=== PATIENT | female | born 1930 | race African-American/Black ===

== ENCOUNTER 2018-06-01 11:29 | Inpatient (IN) | payer MEDICARE, OTHER ==
[~2018-06-01] VITALS: Ht 172.7 cm; Wt 73.0 kg
[~2018-06-01 11:29] MED LIST: CARV3 PO; DOCU100C33 PO; FURO40TA5 PO; LISI2.5T2 PO; QUET25TA PO; SITA25 PO
[2018-06-01] MEDS ORDERED: ASPI-556 PO (11:36)
[2018-06-01] MEDS ORDERED: MORPHINE SULFATE 2 MG/ML SYRINGE IVP ONE (12:00)
[2018-06-01 12:16] LABS: BASOPHILS % (AUTO) 0.6 % (0.0-2.0); EOSINOPHILS % (AUTO) 0 % (1.0-6.0); HEMATOCRIT 27.4 % (36-46); HEMOGLOBIN 9.4 g/dL (12.0-16.0); LYMPHOCYTES # (AUTO) 0.7 K/uL (1.0-4.8); LYMPHOCYTES % (AUTO) 6.7 % (22.0-44.0); MEAN CORPUSCULAR HEMOGLOBIN 33.3 pg (26.0-34.0); MEAN CORPUSCULAR HGB CONC 34.4 G/dL (31.0-37.0); MEAN CORPUSCULAR VOLUME 97 fL (80-100); MONOCYTES # (AUTO) 0.5 K/uL (0.1-1.0); MONOCYTES % (AUTO) 4.9 % (2.0-9.0); NEUTROPHILS # (AUTO) 9.4 K/uL (1.8-7.7); PLATELET COUNT (AUTO) 159 K/uL (150-450); RED BLOOD CELL COUNT(AUTO) 2.83 MIL/uL (4.00-5.20); RED CELL DISTRIBUTION WIDTH 12.7 % (11.5-14.5)
[2018-06-01 12:17] LABS: NEUTROPHILS % (AUTO) 87.8 % (40.0-70.0)
[2018-06-01 12:29] LABS: ANION GAP 9 mmol/L (8-16); CALCIUM, TOTAL 9.1 mg/dL (8.8-10.5); CARBON DIOXIDE 28 mmol/L (22-29); CHLORIDE 105 mmol/L (98-107); CREATININE 1.27 mg/dL (0.60-1.30); GLOMERULAR FILTR. RATE CALC 48 mL/min (>60); GLUCOSE,RANDOM 248 mg/dL (70-110); POTASSIUM 4.1 mmol/L (3.5-5.1); SODIUM SERUM 142 mmol/L (136-145); UREA NITROGEN, BLOOD 27 mg/dL (7-18)
[2018-06-01] MEDS ORDERED: ACETAMINOPHEN 325 MG TABLET PO PRN (13:30)
[2018-06-01] MEDS ORDERED: OxyCODONE HCL/ACETAMINOPHEN 5-325 MG TABLET PO PRN (13:30)
[2018-06-01] MEDS ORDERED: MORPHINE SULFATE 2 MG/ML SYRINGE IVP PRN (13:30)
[2018-06-01] MEDS ORDERED: ONDANSETRON HCL 4 MG/2 ML VIAL IVP PRN (13:30)
[2018-06-01 14:59] LABS: CREATINE KINASE, TOTAL 115 U/L (26-192)
[2018-06-01 15:59] VITALS: BP 108/53
[2018-06-01] MEDS ORDERED: MAGNESIUM HYDROXIDE SUSPENSION 30 ML UDCUP PO PRN (16:45)
[2018-06-01] MEDS ORDERED: BISACODYL 10 MG RECTAL RECTAL SUPPOSITORY PR PRN (16:45)
[2018-06-01] MEDS ORDERED: HYDROCODONE/ACETAMINOPHEN 5-325 MG TABLET PO PRN (16:45)
[2018-06-01 17:53] LABS: PROTHROMBIN TIME 10.9 SEC (9.4-11.6)
[2018-06-01 17:57] LABS: ALBUMIN 3.6 g/dL (3.4-5.0); BILIRUBIN,DIRECT 0.1 mg/dL (0.00-0.20); BILIRUBIN,TOTAL 0.7 mg/dL (0.1-1.0); CALCIUM, TOTAL 9.1 mg/dL (8.8-10.5); CREATININE 1.12 mg/dL (0.60-1.30); TOTAL PROTEIN, SERUM 6.9 g/dL (6.4-8.2)
[2018-06-01] MEDS ORDERED: DEXTROSE 50%-WATER 25 GM/50 ML SYRINGE IVP PRN (19:00)
[2018-06-01 20:02] LABS: GLUCOMETER DEV NAME(LOC) 6N 1E; GLUCOSE,POINT OF CARE 206 MG/DL (70-110)
[2018-06-01 20:18] VITALS: BP 142/64
[2018-06-01] MEDS: CARVEDILOL 3.125 MG TABLET PO SCH (20:43)
[2018-06-01] MEDS: QUEtiapine FUMARATE 25 MG TABLET PO SCH (20:43)
[2018-06-01] MEDS: DOCUSATE SODIUM 100 MG CAPSULE PO SCH (20:43)
[2018-06-01] MEDS: FUROSEMIDE 40 MG TABLET PO SCH (20:43)
[2018-06-01 21:03] LABS: GLUCOMETER DEV NAME(LOC) 6N 1E; GLUCOSE,POINT OF CARE 202 MG/DL (70-110)
[2018-06-02 00:24] VITALS: BP 127/66
[2018-06-02] MEDS: DEXTROSE 5%-0.45% SODIUM CHL 1,000 ML IV SCH ×2 (04:39→17:23)
[2018-06-02 04:45] VITALS: BP 110/51
[2018-06-02 04:53] LABS: GLUCOMETER DEV NAME(LOC) 6N 1E; GLUCOSE,POINT OF CARE 196 MG/DL (70-110)
[2018-06-02 08:00] VITALS: BP 138/88
[2018-06-02] MEDS: CARVEDILOL 3.125 MG TABLET PO SCH ×3 (08:41→21:16)
[2018-06-02] MEDS: SitaGLIPtin PHOSPHATE 25 MG TABLET PO SCH ×2 (08:41→09:44)
[2018-06-02] MEDS: FUROSEMIDE 40 MG TABLET PO SCH ×3 (08:41→21:16)
[2018-06-02] MEDS: ASPIRIN 81 MG EC TABLET PO SCH (08:41)
[2018-06-02] MEDS: DOCUSATE SODIUM 100 MG CAPSULE PO SCH ×3 (08:41→21:15)
[2018-06-02] MEDS ORDERED: [UNRECOGNIZED DRUG - OTHER] PO SCH (09:00)
[2018-06-02] MEDS: OxyCODONE HCL/ACETAMINOPHEN 5-325 MG TABLET PO PRN (09:33)
[2018-06-02] MEDS: PANTOPRAZOLE SODIUM 40 MG/VIAL IVP SCH (09:34)
[2018-06-02] MEDS: INSULIN LISPRO 100 UNITS/ML SQ PRN ×3 (11:30→21:19)
[2018-06-02 11:33] LABS: GLUCOMETER DEV NAME(LOC) 6N 2D; GLUCOSE,POINT OF CARE 212 MG/DL (70-110)
[2018-06-02 15:32] VITALS: BP 123/60
[2018-06-02 17:54] LABS: GLUCOMETER DEV NAME(LOC) 6N 1E; GLUCOSE,POINT OF CARE 206 MG/DL (70-110)
[2018-06-02 19:29] VITALS: BP 125/58
[2018-06-02] MEDS: QUEtiapine FUMARATE 25 MG TABLET PO SCH (21:16)
[2018-06-02 21:53] LABS: GLUCOMETER DEV NAME(LOC) 6N 2D; GLUCOSE,POINT OF CARE 162 MG/DL (70-110)
[2018-06-02 23:15] VITALS: BP 121/62
[2018-06-03 03:22] VITALS: BP 124/64
[2018-06-03] MEDS ORDERED: CeFAZolin 2 GM/DEXTROSE 50 ML IV ONE (06:00)
[2018-06-03 06:53] LABS: GLUCOMETER DEV NAME(LOC) 6N 1E; GLUCOSE,POINT OF CARE 196 MG/DL (70-110)
[2018-06-03 08:11] VITALS: BP 143/57
[2018-06-03] MEDS ORDERED: RINGERS SOLUTION,LACTATED 1,000 ML IV ONE ×2 (08:18→08:30)
[2018-06-03] MEDS ORDERED: BUPIVACAINE HCL/PF 0.5% 30 ML VIAL ONE (09:18)
[2018-06-03] MEDS ORDERED: HYDROGEN PEROXIDE 473 ML SOLUTION ONE (09:18)
[2018-06-03] MEDS ORDERED: MEPERIDINE HCL/PF 25 MG/0.5 ML AMP IVP PRN (11:00)
[2018-06-03] MEDS ORDERED: FentaNYL CITRATE-PF 100 MCG/2 ML VIAL IVP PRN (11:00)
[2018-06-03] MEDS ORDERED: MEPERIDINE HCL/PF 25 MG/0.5 ML AMP ONE (11:24)
[2018-06-03] MEDS ORDERED: HYDROmorphone 2 MG/ML SYRINGE ONE (11:29)
[2018-06-03] MEDS: HYDROmorphone 2 MG/ML SYRINGE IVP PRN ×2 (11:31→11:40)
[2018-06-03 11:39] LABS: HEMATOCRIT 25.3 % (36-46); HEMOGLOBIN 8.8 g/dL (12.0-16.0)
[2018-06-03] MEDS: FUROSEMIDE 40 MG TABLET PO SCH ×2 (12:50→20:24)
[2018-06-03] MEDS: CARVEDILOL 3.125 MG TABLET PO SCH ×2 (12:50→20:25)
[2018-06-03] MEDS: OxyCODONE HCL/ACETAMINOPHEN 5-325 MG TABLET PO PRN (12:50)
[2018-06-03] MEDS: DOCUSATE SODIUM 100 MG CAPSULE PO SCH ×2 (12:50→20:25)
[2018-06-03] MEDS: ASPIRIN 81 MG EC TABLET PO SCH (12:50)
[2018-06-03] MEDS: SitaGLIPtin PHOSPHATE 25 MG TABLET PO SCH (12:50)
[2018-06-03] MEDS: PANTOPRAZOLE SODIUM 40 MG/VIAL IVP SCH (12:51)
[2018-06-03 13:23] VITALS: BP 126/71
[2018-06-03 16:23] VITALS: BP 122/66
[2018-06-03] MEDS: CeFAZolin 1 GM/DEXTROSE 50 ML IV SCH (17:19)
[2018-06-03] MEDS: DEXTROSE 5%-0.45% SODIUM CHL 1,000 ML IV SCH (17:20)
[2018-06-03] MEDS: INSULIN LISPRO 100 UNITS/ML SQ PRN ×2 (17:52→20:28)
[2018-06-03 19:53] LABS: GLUCOMETER DEV NAME(LOC) 6N 2D; GLUCOSE,POINT OF CARE 263 MG/DL (70-110)
[2018-06-03 19:57] VITALS: BP 123/79
[2018-06-03] MEDS: QUEtiapine FUMARATE 25 MG TABLET PO SCH (20:24)
[2018-06-03] MEDS: OXYGEN THERAPY IH SCH (20:24)
[2018-06-03 23:00] VITALS: BP 130/60
[2018-06-04] VITALS (13 sets, daily range): BP systolic 104–147; BP diastolic 41–82
[2018-06-04] MEDS: CeFAZolin 1 GM/DEXTROSE 50 ML IV SCH (02:20)
[2018-06-04] MEDS ORDERED: FentaNYL CITRATE-PF 100 MCG/2 ML VIAL IVP ONE (05:26)
[2018-06-04] MEDS ORDERED: SUCCINYLCHOLINE CHLORIDE 20 MG/ML 10 ML VIAL IVP ONE (05:26)
[2018-06-04] MEDS ORDERED: PROPOFOL 1% 20 ML VIAL IVP ONE (05:26)
[2018-06-04] MEDS ORDERED: ETOMIDATE 2 MG/ML 10 ML VIAL IVP ONE (05:26)
[2018-06-04] MEDS ORDERED: METOCLOPRAMIDE HCL 5 MG/ML 2 ML VIAL IVP ONE (05:26)
[2018-06-04] MEDS ORDERED: LIDOCAINE HCL/PF 2% 5 ML SYRINGE IVP ONE (05:26)
[2018-06-04] MEDS ORDERED: DEXAMETHASONE SOD PHOS 4 MG/ML VIAL IVP ONE (05:26)
[2018-06-04] MEDS: INSULIN LISPRO 100 UNITS/ML SQ PRN ×4 (05:51→20:00)
[2018-06-04 06:43] LABS: GLUCOMETER DEV NAME(LOC) 6N 1E; GLUCOSE,POINT OF CARE 163 MG/DL (70-110)
[2018-06-04 06:43] LABS: GLUCOMETER DEV NAME(LOC) 6N 1E; GLUCOSE,POINT OF CARE 287 MG/DL (70-110)
[2018-06-04 06:51] LABS: BASOPHILS % (AUTO) 0.1 % (0.0-2.0); EOSINOPHILS % (AUTO) 0.1 % (1.0-6.0); HEMATOCRIT 21.5 % (36-46); HEMOGLOBIN 7.5 g/dL (12.0-16.0); LYMPHOCYTES % (AUTO) 13.4 % (22.0-44.0); MEAN CORPUSCULAR HEMOGLOBIN 33.6 pg (26.0-34.0); MEAN CORPUSCULAR HGB CONC 34.7 G/dL (31.0-37.0); MEAN CORPUSCULAR VOLUME 97 fL (80-100); MONOCYTES # (AUTO) 0.7 K/uL (0.1-1.0); NEUTROPHILS # (AUTO) 5.7 K/uL (1.8-7.7); NEUTROPHILS % (AUTO) 77.4 % (40.0-70.0); RED BLOOD CELL COUNT(AUTO) 2.22 MIL/uL (4.00-5.20); RED CELL DISTRIBUTION WIDTH 12.6 % (11.5-14.5)
[2018-06-04 07:37] LABS: PLATELET COUNT (AUTO) 129 K/uL (150-450)
[2018-06-04] MEDS: CARVEDILOL 3.125 MG TABLET PO SCH ×2 (08:54→19:45)
[2018-06-04] MEDS: DOCUSATE SODIUM 100 MG CAPSULE PO SCH ×2 (08:54→19:45)
[2018-06-04] MEDS: SitaGLIPtin PHOSPHATE 25 MG TABLET PO SCH (08:54)
[2018-06-04] MEDS: ENOXAPARIN SODIUM 30 MG/0.3 ML PF SYRINGE SQ SCH ×2 (08:54→21:37)
[2018-06-04] MEDS: FUROSEMIDE 40 MG TABLET PO SCH ×2 (08:54→19:45)
[2018-06-04] MEDS: ASPIRIN 81 MG EC TABLET PO SCH (08:54)
[2018-06-04] MEDS: PANTOPRAZOLE SODIUM 40 MG/VIAL IVP SCH (08:57)
[2018-06-04] MEDS: OxyCODONE HCL/ACETAMINOPHEN 5-325 MG TABLET PO PRN ×2 (08:57→19:45)
[2018-06-04 12:28] LABS: GLUCOMETER DEV NAME(LOC) 6N 2D; GLUCOSE,POINT OF CARE 189 MG/DL (70-110)
[2018-06-04] MEDS: OXYGEN THERAPY IH SCH (19:35)
[2018-06-04] MEDS: QUEtiapine FUMARATE 25 MG TABLET PO SCH (19:45)
[2018-06-05 00:16] VITALS: BP 105/54
[2018-06-05 04:24] VITALS: BP 129/55
[2018-06-05] MEDS: DEXTROSE 5%-0.45% SODIUM CHL 1,000 ML IV SCH ×2 (05:20→11:56)
[2018-06-05 07:50] VITALS: BP 161/78
[2018-06-05] MEDS: OXYGEN THERAPY IH SCH (08:00)
[2018-06-05 08:45] VITALS: BP 107/64
[2018-06-05] MEDS: FUROSEMIDE 40 MG TABLET PO SCH (09:35)
[2018-06-05] MEDS: CARVEDILOL 3.125 MG TABLET PO SCH (09:35)
[2018-06-05] MEDS: ASPIRIN 81 MG EC TABLET PO SCH (09:35)
[2018-06-05] MEDS: SitaGLIPtin PHOSPHATE 25 MG TABLET PO SCH (09:35)
[2018-06-05] MEDS: PANTOPRAZOLE SODIUM 40 MG/VIAL IVP SCH (09:36)
[2018-06-05] MEDS: ENOXAPARIN SODIUM 30 MG/0.3 ML PF SYRINGE SQ SCH (09:36)
[2018-06-05] MEDS: DOCUSATE SODIUM 100 MG CAPSULE PO SCH (09:57)
[2018-06-05 10:26] LABS: BASOPHILS % (AUTO) 0.8 % (0.0-2.0); EOSINOPHILS % (AUTO) 0.4 % (1.0-6.0); HEMATOCRIT 30.3 % (36-46); HEMOGLOBIN 10.5 g/dL (12.0-16.0); LYMPHOCYTES % (AUTO) 11.6 % (22.0-44.0); MEAN CORPUSCULAR HEMOGLOBIN 32.8 pg (26.0-34.0); MEAN CORPUSCULAR HGB CONC 34.8 G/dL (31.0-37.0); MEAN CORPUSCULAR VOLUME 94 fL (80-100); MONOCYTES # (AUTO) 0.7 K/uL (0.1-1.0); MONOCYTES % (AUTO) 7.7 % (2.0-9.0); NEUTROPHILS # (AUTO) 7.2 K/uL (1.8-7.7); NEUTROPHILS % (AUTO) 79.5 % (40.0-70.0); PLATELET COUNT (AUTO) 203 K/uL (150-450); RED BLOOD CELL COUNT(AUTO) 3.21 MIL/uL (4.00-5.20)
[2018-06-05 10:39] LABS: GLUCOMETER DEV NAME(LOC) 5N 1P; GLUCOSE,POINT OF CARE 109 MG/DL (70-110)
[2018-06-05 10:39] LABS: GLUCOMETER DEV NAME(LOC) 5N 1P; GLUCOSE,POINT OF CARE 188 MG/DL (70-110)
[2018-06-05 10:39] LABS: GLUCOMETER DEV NAME(LOC) 5N 1P; GLUCOSE,POINT OF CARE 144 MG/DL (70-110)
[2018-06-05 10:50] VITALS: BP 109/54
[2018-06-05] MEDS: INSULIN LISPRO 100 UNITS/ML SQ PRN (11:55)
[2018-06-05] MEDS: OxyCODONE HCL/ACETAMINOPHEN 5-325 MG TABLET PO PRN (12:35)
[2018-06-05] MEDS ORDERED: PANT40TA PO (14:40)
[2018-06-05 15:15] VITALS: BP 138/72
[2018-06-05 23:49] LABS: GLUCOMETER DEV NAME(LOC) 5N 1P; GLUCOSE,POINT OF CARE 272 MG/DL (70-110)
== END 2018-06-05 15:15 | DRG 481 ==
LOC: EMS 11:31 → 6N 13:45 → 5N 06-04 12:10
PROVIDERS: ADMIT Internal Medicine; ATTEND Internal Medicine
PROC: 0QH606Z Insertion of Intramedullary Internal Fixation Device into Right Upper Femur, Open Approach (ICD-10-PCS; principal; 2018-06-03 09:30)
PROC: 30233N1 Transfusion of Nonautologous Red Blood Cells into Peripheral Vein, Percutaneous Approach (ICD-10-PCS; 2018-06-04)
DX: S72.141A Displaced intertrochanteric fracture of right femur, initial encounter for closed fracture (principal); I42.9 Cardiomyopathy, unspecified; I50.22 Chronic systolic (congestive) heart failure; E11.65 Type 2 diabetes mellitus with hyperglycemia; F03.90 Unspecified dementia, unspecified severity, without behavioral disturbance, psychotic disturbance, mood disturbance, and anxiety; D64.9 Anemia, unspecified; E78.5 Hyperlipidemia, unspecified; I11.0 Hypertensive heart disease with heart failure; F20.9 Schizophrenia, unspecified; W06.XXXA Fall from bed, initial encounter; Z96.642 Presence of left artificial hip joint; Y93.89 Activity, other specified; Y92.89 Other specified places as the place of occurrence of the external cause; Y99.8 Other external cause status; Z95.810 Presence of automatic (implantable) cardiac defibrillator; Z79.899 Other long term (current) drug therapy; Z79.82 Long term (current) use of aspirin
CPT/HCPCS: 51702; 73502; 73552; 82248; 85014; 85018; 86850; 86900; 86901; 86920; 87081; 93005; 93306; 96374; 97162; 97166; 97167; 97530; 97535; 99285; C9113; J0330; J0690; J1100; J1170; J1650; J2270; J2704; J2765; J3010; J3490; J7120; P9016

== ENCOUNTER 2018-06-05 15:20 | Inpatient (IN) | payer MEDICARE, OTHER ==
[~2018-06-05] VITALS: Ht 165.1 cm; Wt 63.5 kg
[~2018-06-05 15:20] MED LIST changes: +ASPI-556 PO; +PANT40TA PO
[2018-06-05 15:30] VITALS: BP 136/60
[2018-06-05] MEDS ORDERED: DEXTROSE 50%-WATER 25 GM/50 ML SYRINGE IVP PRN (16:45)
[2018-06-05 18:34] LABS: GLUCOMETER DEV NAME(LOC) 2WR 1B; GLUCOSE,POINT OF CARE 167 MG/DL (70-110)
[2018-06-05] MEDS: INSULIN LISPRO 100 UNITS/ML SQ PRN ×2 (18:37→20:31)
[2018-06-05 20:21] VITALS: BP 147/71
[2018-06-05] MEDS: QUEtiapine FUMARATE 25 MG TABLET PO SCH (20:29)
[2018-06-05] MEDS: DOCUSATE SODIUM 100 MG CAPSULE PO SCH (20:29)
[2018-06-05] MEDS: SENNA 187 MG TABLET PO SCH (20:29)
[2018-06-05] MEDS: FUROSEMIDE 40 MG TABLET PO SCH (20:29)
[2018-06-05] MEDS: CARVEDILOL 3.125 MG TABLET PO SCH (20:29)
[2018-06-05] MEDS: ENOXAPARIN SODIUM 30 MG/0.3 ML PF SYRINGE SQ SCH (20:32)
[2018-06-05] MEDS ORDERED: QUEtiapine FUMARATE 25 MG TABLET PO SCH (21:00)
[2018-06-05 21:58] LABS: GLUCOMETER DEV NAME(LOC) 2WR 1B; GLUCOSE,POINT OF CARE 162 MG/DL (70-110)
[2018-06-06 03:02] VITALS: BP 138/63
[2018-06-06 04:45] LABS: APPEARANCE,URINE CLEAR (CLEAR); BILIRUBIN,URINE NEGATIVE (NEGATIVE); GLUCOSE, URINE (UA) NEGATIVE (NEGATIVE); KETONES,URINE NEGATIVE (NEGATIVE); LEUKOCYTE ESTERASE ,URINE NEGATIVE (NEGATIVE); NITRATE,URINE NEGATIVE (NEGATIVE); OCCULT BLOOD,URINE NEGATIVE (NEGATIVE); PROTEIN,URINE NEGATIVE (NEGATIVE)
[2018-06-06 05:04] LABS: BACTERIA,URINE None Seen /HPF (None Seen); RBC,URINE None Seen /HPF (0-2); WBC,URINE None Seen /HPF (0-5)
[2018-06-06 05:53] LABS: GLUCOMETER DEV NAME(LOC) 2WR 1B; GLUCOSE,POINT OF CARE 131 MG/DL (70-110)
[2018-06-06 06:43] LABS: EOSINOPHILS % (AUTO) 0.5 % (1.0-6.0); HEMATOCRIT 27.9 % (36-46); HEMOGLOBIN 9.8 g/dL (12.0-16.0); LYMPHOCYTES # (AUTO) 1.1 K/uL (1.0-4.8); LYMPHOCYTES % (AUTO) 17.3 % (22.0-44.0); MEAN CORPUSCULAR HGB CONC 35.1 G/dL (31.0-37.0); MEAN CORPUSCULAR VOLUME 94 fL (80-100); MONOCYTES # (AUTO) 0.6 K/uL (0.1-1.0); MONOCYTES % (AUTO) 8.5 % (2.0-9.0); NEUTROPHILS # (AUTO) 4.8 K/uL (1.8-7.7); NEUTROPHILS % (AUTO) 72.7 % (40.0-70.0); PLATELET COUNT (AUTO) 160 K/uL (150-450); RED BLOOD CELL COUNT(AUTO) 2.97 MIL/uL (4.00-5.20)
[2018-06-06 07:06] LABS: ALANINE AMINOTRANSFERASE 12 U/L (12-78); ALBUMIN 2.6 g/dL (3.4-5.0); ALKALINE PHOSPHATASE 77 U/L (46-116); ANION GAP 4 mmol/L (8-16); ASPARTATE AMINOTRANSFERASE 15 U/L (15-37); BILIRUBIN,TOTAL 0.9 mg/dL (0.1-1.0); CALCIUM, TOTAL 8.6 mg/dL (8.8-10.5); CARBON DIOXIDE 32 mmol/L (22-29); CHLORIDE 100 mmol/L (98-107); CREATININE 1.04 mg/dL (0.60-1.30); GLUCOSE,RANDOM 142 mg/dL (70-110); POTASSIUM 3.6 mmol/L (3.5-5.1); SODIUM SERUM 136 mmol/L (136-145); UREA NITROGEN, BLOOD 30 mg/dL (7-18)
[2018-06-06 07:07] LABS: GLOMERULAR FILTR. RATE CALC > 60 mL/min (>60)
[2018-06-06 07:20] VITALS: BP 125/72
[2018-06-06] MEDS: PANTOPRAZOLE SODIUM 40 MG DR TABLET PO SCH (09:44)
[2018-06-06] MEDS: ENOXAPARIN SODIUM 30 MG/0.3 ML PF SYRINGE SQ SCH ×2 (09:44→20:57)
[2018-06-06] MEDS: CARVEDILOL 3.125 MG TABLET PO SCH ×2 (09:44→20:56)
[2018-06-06] MEDS: FUROSEMIDE 40 MG TABLET PO SCH ×2 (09:44→20:57)
[2018-06-06] MEDS: SitaGLIPtin PHOSPHATE 25 MG TABLET PO SCH (09:44)
[2018-06-06] MEDS: DOCUSATE SODIUM 100 MG CAPSULE PO SCH ×2 (09:44→20:59)
[2018-06-06] MEDS: ASPIRIN 81 MG CHEWABLE TABLET PO SCH (09:44)
[2018-06-06] MEDS: MULTIVITAMINS WITH MINERALS, THERAPEUTIC TABLET PO SCH (10:26)
[2018-06-06 12:38] LABS: GLUCOMETER DEV NAME(LOC) 2WR 2E; GLUCOSE,POINT OF CARE 237 MG/DL (70-110)
[2018-06-06] MEDS: INSULIN LISPRO 100 UNITS/ML SQ PRN ×2 (13:17→21:00)
[2018-06-06 15:55] VITALS: BP 105/52
[2018-06-06] MEDS: OxyCODONE HCL/ACETAMINOPHEN 5-325 MG TABLET PO PRN (16:37)
[2018-06-06 17:49] LABS: GLUCOMETER DEV NAME(LOC) 2WR 1B; GLUCOSE,POINT OF CARE 143 MG/DL (70-110)
[2018-06-06 20:40] VITALS: BP 142/58
[2018-06-06] MEDS: SENNA 187 MG TABLET PO SCH (20:56)
[2018-06-06] MEDS: QUEtiapine FUMARATE 25 MG TABLET PO SCH (20:57)
[2018-06-06 21:43] LABS: GLUCOMETER DEV NAME(LOC) 2WR 2E; GLUCOSE,POINT OF CARE 153 MG/DL (70-110)
[2018-06-07 03:58] VITALS: BP 142/59
[2018-06-07 06:14] LABS: GLUCOMETER DEV NAME(LOC) 2WR 2E; GLUCOSE,POINT OF CARE 124 MG/DL (70-110)
[2018-06-07 07:22] VITALS: BP 143/55
[2018-06-07] MEDS: SitaGLIPtin PHOSPHATE 25 MG TABLET PO SCH (08:30)
[2018-06-07] MEDS: ENOXAPARIN SODIUM 30 MG/0.3 ML PF SYRINGE SQ SCH ×2 (08:30→21:08)
[2018-06-07] MEDS: ASPIRIN 81 MG CHEWABLE TABLET PO SCH (08:30)
[2018-06-07] MEDS: PANTOPRAZOLE SODIUM 40 MG DR TABLET PO SCH (08:30)
[2018-06-07] MEDS: FUROSEMIDE 40 MG TABLET PO SCH ×2 (08:30→21:08)
[2018-06-07] MEDS: CARVEDILOL 3.125 MG TABLET PO SCH ×2 (08:30→21:08)
[2018-06-07] MEDS: MULTIVITAMINS WITH MINERALS, THERAPEUTIC TABLET PO SCH (08:30)
[2018-06-07] MEDS: DOCUSATE SODIUM 100 MG CAPSULE PO SCH ×2 (08:35→21:08)
[2018-06-07] MEDS: ACETAMINOPHEN 325 MG TABLET PO PRN (09:30)
[2018-06-07 12:28] LABS: GLUCOMETER DEV NAME(LOC) 2WR 2E; GLUCOSE,POINT OF CARE 207 MG/DL (70-110)
[2018-06-07] MEDS: INSULIN LISPRO 100 UNITS/ML SQ PRN ×2 (12:51→21:15)
[2018-06-07] MEDS: OxyCODONE HCL/ACETAMINOPHEN 5-325 MG TABLET PO PRN ×2 (13:35→22:50)
[2018-06-07 15:15] VITALS: BP 124/61
[2018-06-07 17:44] LABS: GLUCOMETER DEV NAME(LOC) 2WR 2E; GLUCOSE,POINT OF CARE 110 MG/DL (70-110)
[2018-06-07] MEDS: SENNA 187 MG TABLET PO SCH (21:08)
[2018-06-07] MEDS: QUEtiapine FUMARATE 25 MG TABLET PO SCH (21:08)
[2018-06-07 22:19] LABS: GLUCOMETER DEV NAME(LOC) 2WR 1B; GLUCOSE,POINT OF CARE 153 MG/DL (70-110)
[2018-06-07 22:53] VITALS: BP 128/51
[2018-06-08 06:14] LABS: GLUCOMETER DEV NAME(LOC) 2WR 1B; GLUCOSE,POINT OF CARE 106 MG/DL (70-110)
[2018-06-08 07:34] VITALS: BP 142/70
[2018-06-08] MEDS: CARVEDILOL 3.125 MG TABLET PO SCH ×2 (08:08→20:28)
[2018-06-08] MEDS: MULTIVITAMINS WITH MINERALS, THERAPEUTIC TABLET PO SCH (08:08)
[2018-06-08] MEDS: ENOXAPARIN SODIUM 30 MG/0.3 ML PF SYRINGE SQ SCH ×2 (08:08→20:28)
[2018-06-08] MEDS: PANTOPRAZOLE SODIUM 40 MG DR TABLET PO SCH (08:08)
[2018-06-08] MEDS: DOCUSATE SODIUM 250 MG CAPSULE PO SCH ×2 (08:08→20:27)
[2018-06-08] MEDS: ASPIRIN 81 MG CHEWABLE TABLET PO SCH (08:08)
[2018-06-08] MEDS: FUROSEMIDE 40 MG TABLET PO SCH ×2 (08:08→20:27)
[2018-06-08] MEDS: SitaGLIPtin PHOSPHATE 25 MG TABLET PO SCH (08:08)
[2018-06-08] MEDS: OxyCODONE HCL/ACETAMINOPHEN 5-325 MG TABLET PO PRN ×3 (08:11→21:49)
[2018-06-08 12:49] LABS: GLUCOMETER DEV NAME(LOC) 2WR 1B; GLUCOSE,POINT OF CARE 213 MG/DL (70-110)
[2018-06-08] MEDS: INSULIN LISPRO 100 UNITS/ML SQ PRN ×2 (13:09→21:53)
[2018-06-08 15:30] VITALS: BP 117/55
[2018-06-08 17:53] LABS: GLUCOMETER DEV NAME(LOC) 2WR 1B; GLUCOSE,POINT OF CARE 126 MG/DL (70-110)
[2018-06-08] MEDS: DOCUSATE SODIUM 283 MG/5 ML MINI-ENEMA PR PRN (19:05)
[2018-06-08] MEDS: QUEtiapine FUMARATE 25 MG TABLET PO SCH (20:27)
[2018-06-08] MEDS: SENNA 187 MG TABLET PO SCH (20:28)
[2018-06-08 20:35] VITALS: BP 100/52
[2018-06-08 21:39] LABS: GLUCOMETER DEV NAME(LOC) 2WR 2E; GLUCOSE,POINT OF CARE 187 MG/DL (70-110)
[2018-06-09 00:28] VITALS: BP 116/54
[2018-06-09 06:04] LABS: GLUCOMETER DEV NAME(LOC) 2WR 2E; GLUCOSE,POINT OF CARE 106 MG/DL (70-110)
[2018-06-09 07:18] VITALS: BP 146/57
[2018-06-09] MEDS: SitaGLIPtin PHOSPHATE 25 MG TABLET PO SCH (07:59)
[2018-06-09] MEDS: MULTIVITAMINS WITH MINERALS, THERAPEUTIC TABLET PO SCH (07:59)
[2018-06-09] MEDS: PANTOPRAZOLE SODIUM 40 MG DR TABLET PO SCH (07:59)
[2018-06-09] MEDS: CARVEDILOL 3.125 MG TABLET PO SCH ×2 (08:00→20:28)
[2018-06-09] MEDS: ASPIRIN 81 MG CHEWABLE TABLET PO SCH (08:01)
[2018-06-09] MEDS: DOCUSATE SODIUM 250 MG CAPSULE PO SCH ×2 (08:01→20:28)
[2018-06-09] MEDS: FUROSEMIDE 40 MG TABLET PO SCH ×2 (08:01→20:29)
[2018-06-09] MEDS: ENOXAPARIN SODIUM 30 MG/0.3 ML PF SYRINGE SQ SCH ×2 (08:02→20:28)
[2018-06-09] MEDS: OxyCODONE HCL/ACETAMINOPHEN 5-325 MG TABLET PO PRN ×2 (09:01→20:28)
[2018-06-09 12:48] LABS: GLUCOMETER DEV NAME(LOC) 2WR 2E; GLUCOSE,POINT OF CARE 207 MG/DL (70-110)
[2018-06-09] MEDS: INSULIN LISPRO 100 UNITS/ML SQ PRN ×2 (13:21→20:47)
[2018-06-09] MEDS: ACETAMINOPHEN 325 MG TABLET PO PRN (14:49)
[2018-06-09 15:38] VITALS: BP 115/47
[2018-06-09 17:34] LABS: GLUCOMETER DEV NAME(LOC) 2WR 1B; GLUCOSE,POINT OF CARE 138 MG/DL (70-110)
[2018-06-09] MEDS: DOCUSATE SODIUM 283 MG/5 ML MINI-ENEMA PR PRN (19:25)
[2018-06-09 20:26] VITALS: BP 141/54
[2018-06-09] MEDS: QUEtiapine FUMARATE 25 MG TABLET PO SCH (20:28)
[2018-06-09] MEDS: SENNA 187 MG TABLET PO SCH (20:28)
[2018-06-09 21:09] LABS: GLUCOMETER DEV NAME(LOC) 2WR 1B; GLUCOSE,POINT OF CARE 194 MG/DL (70-110)
[2018-06-10 05:38] VITALS: BP 94/53
[2018-06-10 06:19] LABS: GLUCOMETER DEV NAME(LOC) 2WR 2E; GLUCOSE,POINT OF CARE 106 MG/DL (70-110)
[2018-06-10 06:47] LABS: % IRON SATURATION 27.1 % (22-44)
[2018-06-10 07:27] VITALS: BP 121/54
[2018-06-10] MEDS: FUROSEMIDE 40 MG TABLET PO SCH ×2 (08:00→20:53)
[2018-06-10] MEDS: MULTIVITAMINS WITH MINERALS, THERAPEUTIC TABLET PO SCH (08:00)
[2018-06-10] MEDS: DOCUSATE SODIUM 250 MG CAPSULE PO SCH ×2 (08:00→20:53)
[2018-06-10] MEDS: CARVEDILOL 3.125 MG TABLET PO SCH ×2 (08:00→20:53)
[2018-06-10] MEDS: ASPIRIN 81 MG CHEWABLE TABLET PO SCH (08:00)
[2018-06-10] MEDS: SitaGLIPtin PHOSPHATE 25 MG TABLET PO SCH (08:00)
[2018-06-10] MEDS: ENOXAPARIN SODIUM 30 MG/0.3 ML PF SYRINGE SQ SCH ×2 (08:01→20:54)
[2018-06-10] MEDS: PANTOPRAZOLE SODIUM 40 MG DR TABLET PO SCH (08:01)
[2018-06-10] MEDS: OxyCODONE HCL/ACETAMINOPHEN 5-325 MG TABLET PO PRN ×3 (08:38→20:53)
[2018-06-10 12:48] LABS: GLUCOMETER DEV NAME(LOC) 2WR 1B; GLUCOSE,POINT OF CARE 179 MG/DL (70-110)
[2018-06-10] MEDS: INSULIN LISPRO 100 UNITS/ML SQ PRN ×2 (13:03→21:09)
[2018-06-10 15:19] VITALS: BP 116/53
[2018-06-10 17:34] LABS: GLUCOMETER DEV NAME(LOC) 2WR 1B; GLUCOSE,POINT OF CARE 110 MG/DL (70-110)
[2018-06-10] MEDS ORDERED: DOCUSATE SODIUM 283 MG/5 ML MINI-ENEMA PR ONE (19:30)
[2018-06-10 20:46] VITALS: BP 138/64
[2018-06-10] MEDS: SENNA 187 MG TABLET PO SCH (20:53)
[2018-06-10] MEDS: QUEtiapine FUMARATE 25 MG TABLET PO SCH (20:53)
[2018-06-10] MEDS ORDERED: DOCUSATE SODIUM 283 MG/5 ML MINI-ENEMA PR SCH ×2 (21:00)
[2018-06-10 22:43] LABS: GLUCOMETER DEV NAME(LOC) 2WR 1B; GLUCOSE,POINT OF CARE 153 MG/DL (70-110)
[2018-06-10 23:25] VITALS: BP 112/69
[2018-06-11 06:04] LABS: GLUCOMETER DEV NAME(LOC) 2WR 1B; GLUCOSE,POINT OF CARE 97 MG/DL (70-110)
[2018-06-11 07:30] VITALS: BP 138/64
[2018-06-11] MEDS: SitaGLIPtin PHOSPHATE 25 MG TABLET PO SCH (08:14)
[2018-06-11] MEDS: ASPIRIN 81 MG CHEWABLE TABLET PO SCH (08:14)
[2018-06-11] MEDS: FUROSEMIDE 40 MG TABLET PO SCH ×2 (08:15→20:46)
[2018-06-11] MEDS: CARVEDILOL 3.125 MG TABLET PO SCH ×2 (08:15→20:45)
[2018-06-11] MEDS: MULTIVITAMINS WITH MINERALS, THERAPEUTIC TABLET PO SCH (08:15)
[2018-06-11] MEDS: ENOXAPARIN SODIUM 30 MG/0.3 ML PF SYRINGE SQ SCH ×2 (08:15→21:49)
[2018-06-11] MEDS: DOCUSATE SODIUM 250 MG CAPSULE PO SCH ×2 (08:15→20:45)
[2018-06-11] MEDS: OxyCODONE HCL/ACETAMINOPHEN 5-325 MG TABLET PO PRN ×2 (08:15→13:24)
[2018-06-11] MEDS: PANTOPRAZOLE SODIUM 40 MG DR TABLET PO SCH (08:15)
[2018-06-11 12:19] LABS: GLUCOMETER DEV NAME(LOC) 2WR 2E; GLUCOSE,POINT OF CARE 185 MG/DL (70-110)
[2018-06-11] MEDS: INSULIN LISPRO 100 UNITS/ML SQ PRN ×2 (13:05→20:48)
[2018-06-11 15:13] VITALS: BP 129/60
[2018-06-11 17:18] LABS: GLUCOMETER DEV NAME(LOC) 2WR 2E; GLUCOSE,POINT OF CARE 123 MG/DL (70-110)
[2018-06-11] MEDS: DOCUSATE SODIUM 283 MG/5 ML MINI-ENEMA PR SCH (18:16)
[2018-06-11] MEDS: QUEtiapine FUMARATE 25 MG TABLET PO SCH (20:45)
[2018-06-11] MEDS: SENNA 187 MG TABLET PO SCH (20:46)
[2018-06-11 20:56] VITALS: BP 160/98
[2018-06-11 21:14] LABS: GLUCOMETER DEV NAME(LOC) 2WR 1B; GLUCOSE,POINT OF CARE 166 MG/DL (70-110)
[2018-06-11 22:12] VITALS: BP 137/46
[2018-06-12 04:30] VITALS: BP 146/64
[2018-06-12 07:19] VITALS: BP 147/88
[2018-06-12 07:53] LABS: GLUCOMETER DEV NAME(LOC) 2WR 2E; GLUCOSE,POINT OF CARE 109 MG/DL (70-110)
[2018-06-12] MEDS: SitaGLIPtin PHOSPHATE 25 MG TABLET PO SCH (08:07)
[2018-06-12] MEDS: MULTIVITAMINS WITH MINERALS, THERAPEUTIC TABLET PO SCH (08:07)
[2018-06-12] MEDS: ENOXAPARIN SODIUM 30 MG/0.3 ML PF SYRINGE SQ SCH ×2 (08:07→20:13)
[2018-06-12] MEDS: OxyCODONE HCL/ACETAMINOPHEN 5-325 MG TABLET PO PRN ×3 (08:07→19:05)
[2018-06-12] MEDS: PANTOPRAZOLE SODIUM 40 MG DR TABLET PO SCH (08:08)
[2018-06-12] MEDS: FUROSEMIDE 40 MG TABLET PO SCH ×2 (08:08→20:13)
[2018-06-12] MEDS: DOCUSATE SODIUM 250 MG CAPSULE PO SCH ×2 (08:08→20:13)
[2018-06-12] MEDS: ASPIRIN 81 MG CHEWABLE TABLET PO SCH (08:08)
[2018-06-12] MEDS: CARVEDILOL 3.125 MG TABLET PO SCH ×2 (08:08→20:13)
[2018-06-12] MEDS: INSULIN LISPRO 100 UNITS/ML SQ PRN ×2 (12:42→20:37)
[2018-06-12 12:54] LABS: GLUCOMETER DEV NAME(LOC) 2WR 2E; GLUCOSE,POINT OF CARE 204 MG/DL (70-110)
[2018-06-12] MEDS ORDERED: BISACODYL 5 MG EC TABLET PO PRN (14:45)
[2018-06-12 14:58] VITALS: BP 119/59
[2018-06-12 15:48] VITALS: BP 119/59
[2018-06-12 17:03] LABS: GLUCOMETER DEV NAME(LOC) 2WR 1B; GLUCOSE,POINT OF CARE 109 MG/DL (70-110)
[2018-06-12] MEDS: DOCUSATE SODIUM 283 MG/5 ML MINI-ENEMA PR SCH (18:27)
[2018-06-12] MEDS: SENNA 187 MG TABLET PO SCH (20:13)
[2018-06-12] MEDS: QUEtiapine FUMARATE 25 MG TABLET PO SCH (20:13)
[2018-06-12 20:17] VITALS: BP 129/80
[2018-06-12 23:24] LABS: GLUCOMETER DEV NAME(LOC) 2WR 1B; GLUCOSE,POINT OF CARE 182 MG/DL (70-110)
[2018-06-13 05:47] VITALS: BP 159/67
[2018-06-13 06:19] LABS: GLUCOMETER DEV NAME(LOC) 2WR 2E; GLUCOSE,POINT OF CARE 112 MG/DL (70-110)
[2018-06-13 07:30] VITALS: BP 146/96
[2018-06-13] MEDS: MULTIVITAMINS WITH MINERALS, THERAPEUTIC TABLET PO SCH (08:07)
[2018-06-13] MEDS: ASPIRIN 81 MG CHEWABLE TABLET PO SCH (08:07)
[2018-06-13] MEDS: DOCUSATE SODIUM 250 MG CAPSULE PO SCH ×2 (08:07→20:33)
[2018-06-13] MEDS: SitaGLIPtin PHOSPHATE 25 MG TABLET PO SCH (08:07)
[2018-06-13] MEDS: PANTOPRAZOLE SODIUM 40 MG DR TABLET PO SCH (08:08)
[2018-06-13] MEDS: ENOXAPARIN SODIUM 30 MG/0.3 ML PF SYRINGE SQ SCH ×2 (08:08→20:33)
[2018-06-13] MEDS: FUROSEMIDE 40 MG TABLET PO SCH ×2 (08:08→20:34)
[2018-06-13] MEDS: CARVEDILOL 3.125 MG TABLET PO SCH ×2 (08:12→20:34)
[2018-06-13 10:51] VITALS: BP 140/72
[2018-06-13] MEDS: INSULIN LISPRO 100 UNITS/ML SQ PRN ×2 (12:27→21:28)
[2018-06-13 12:34] LABS: GLUCOMETER DEV NAME(LOC) 2WR 2E; GLUCOSE,POINT OF CARE 244 MG/DL (70-110)
[2018-06-13 15:20] VITALS: BP 138/66
[2018-06-13 17:54] LABS: GLUCOMETER DEV NAME(LOC) 2WR 1B; GLUCOSE,POINT OF CARE 105 MG/DL (70-110)
[2018-06-13] MEDS: DOCUSATE SODIUM 283 MG/5 ML MINI-ENEMA PR SCH (18:18)
[2018-06-13 20:30] VITALS: BP 126/67
[2018-06-13] MEDS: OxyCODONE HCL/ACETAMINOPHEN 5-325 MG TABLET PO PRN (20:33)
[2018-06-13] MEDS: QUEtiapine FUMARATE 25 MG TABLET PO SCH (20:34)
[2018-06-13] MEDS: SENNA 187 MG TABLET PO SCH (20:34)
[2018-06-13 21:28] LABS: GLUCOMETER DEV NAME(LOC) 2WR 2E; GLUCOSE,POINT OF CARE 206 MG/DL (70-110)
[2018-06-14 05:00] VITALS: BP 122/83
[2018-06-14 07:17] VITALS: BP 140/54
[2018-06-14 07:39] LABS: GLUCOMETER DEV NAME(LOC) 2WR 1B; GLUCOSE,POINT OF CARE 118 MG/DL (70-110)
[2018-06-14] MEDS: SitaGLIPtin PHOSPHATE 25 MG TABLET PO SCH (08:06)
[2018-06-14] MEDS: MULTIVITAMINS WITH MINERALS, THERAPEUTIC TABLET PO SCH (08:06)
[2018-06-14] MEDS: DOCUSATE SODIUM 250 MG CAPSULE PO SCH ×2 (08:06→20:29)
[2018-06-14] MEDS: PANTOPRAZOLE SODIUM 40 MG DR TABLET PO SCH (08:06)
[2018-06-14] MEDS: ASPIRIN 81 MG CHEWABLE TABLET PO SCH (08:07)
[2018-06-14] MEDS: FUROSEMIDE 40 MG TABLET PO SCH ×2 (08:07→20:30)
[2018-06-14] MEDS: CARVEDILOL 3.125 MG TABLET PO SCH ×2 (08:07→20:29)
[2018-06-14] MEDS: ENOXAPARIN SODIUM 30 MG/0.3 ML PF SYRINGE SQ SCH ×2 (08:13→20:29)
[2018-06-14 11:58] LABS: GLUCOMETER DEV NAME(LOC) 2WR 1B; GLUCOSE,POINT OF CARE 172 MG/DL (70-110)
[2018-06-14] MEDS: INSULIN LISPRO 100 UNITS/ML SQ PRN ×2 (12:57→22:02)
[2018-06-14 15:06] VITALS: BP 140/61
[2018-06-14 17:53] LABS: GLUCOMETER DEV NAME(LOC) 2WR 2E; GLUCOSE,POINT OF CARE 121 MG/DL (70-110)
[2018-06-14] MEDS: DOCUSATE SODIUM 283 MG/5 ML MINI-ENEMA PR SCH (18:08)
[2018-06-14 20:27] VITALS: BP 144/51
[2018-06-14] MEDS: SENNA 187 MG TABLET PO SCH (20:29)
[2018-06-14] MEDS: QUEtiapine FUMARATE 25 MG TABLET PO SCH (20:29)
[2018-06-14 21:03] LABS: GLUCOMETER DEV NAME(LOC) 2WR 2E; GLUCOSE,POINT OF CARE 183 MG/DL (70-110)
[2018-06-15] VITALS: BP 142/58
[2018-06-15 05:48] LABS: GLUCOMETER DEV NAME(LOC) 2WR 1B; GLUCOSE,POINT OF CARE 114 MG/DL (70-110)
[2018-06-15 07:22] VITALS: BP 130/54
[2018-06-15] MEDS: SitaGLIPtin PHOSPHATE 25 MG TABLET PO SCH (08:23)
[2018-06-15] MEDS: ASPIRIN 81 MG CHEWABLE TABLET PO SCH (08:23)
[2018-06-15] MEDS: FUROSEMIDE 40 MG TABLET PO SCH ×2 (08:23→20:30)
[2018-06-15] MEDS: PANTOPRAZOLE SODIUM 40 MG DR TABLET PO SCH (08:23)
[2018-06-15] MEDS: MULTIVITAMINS WITH MINERALS, THERAPEUTIC TABLET PO SCH (08:23)
[2018-06-15] MEDS: CARVEDILOL 3.125 MG TABLET PO SCH ×2 (08:23→20:30)
[2018-06-15] MEDS: DOCUSATE SODIUM 250 MG CAPSULE PO SCH ×2 (08:23→20:30)
[2018-06-15] MEDS: ENOXAPARIN SODIUM 30 MG/0.3 ML PF SYRINGE SQ SCH ×2 (08:24→20:31)
[2018-06-15 12:49] LABS: GLUCOMETER DEV NAME(LOC) 2WR 2E; GLUCOSE,POINT OF CARE 203 MG/DL (70-110)
[2018-06-15] MEDS: ACETAMINOPHEN 325 MG TABLET PO PRN (13:06)
[2018-06-15] MEDS: FERROUS SULFATE 325 MG EC TABLET PO SCH ×2 (13:06→17:43)
[2018-06-15] MEDS: INSULIN LISPRO 100 UNITS/ML SQ PRN ×3 (13:07→20:31)
[2018-06-15 16:06] VITALS: BP 129/84
[2018-06-15 17:03] LABS: GLUCOMETER DEV NAME(LOC) 2WR 2E; GLUCOSE,POINT OF CARE 149 MG/DL (70-110)
[2018-06-15] MEDS: DOCUSATE SODIUM 283 MG/5 ML MINI-ENEMA PR SCH (17:44)
[2018-06-15] MEDS: SENNA 187 MG TABLET PO SCH (20:30)
[2018-06-15] MEDS: QUEtiapine FUMARATE 25 MG TABLET PO SCH (20:30)
[2018-06-15] MEDS: MEMANTINE HCL 5 MG TABLET PO SCH (20:30)
[2018-06-15 20:37] VITALS: BP 125/64
[2018-06-15 21:19] LABS: GLUCOMETER DEV NAME(LOC) 2WR 1B; GLUCOSE,POINT OF CARE 169 MG/DL (70-110)
[2018-06-15] MEDS: OxyCODONE HCL/ACETAMINOPHEN 5-325 MG TABLET PO PRN (21:56)
[2018-06-16 06:19] VITALS: BP 140/76
[2018-06-16 07:30] VITALS: BP 130/65
[2018-06-16] MEDS: ENOXAPARIN SODIUM 30 MG/0.3 ML PF SYRINGE SQ SCH ×2 (08:31→20:27)
[2018-06-16] MEDS: FUROSEMIDE 40 MG TABLET PO SCH ×2 (08:32→20:27)
[2018-06-16] MEDS: MULTIVITAMINS WITH MINERALS, THERAPEUTIC TABLET PO SCH (08:32)
[2018-06-16] MEDS: CARVEDILOL 3.125 MG TABLET PO SCH ×2 (08:32→20:27)
[2018-06-16] MEDS: DOCUSATE SODIUM 250 MG CAPSULE PO SCH ×2 (08:32→20:27)
[2018-06-16] MEDS: ASPIRIN 81 MG CHEWABLE TABLET PO SCH (08:32)
[2018-06-16] MEDS: PANTOPRAZOLE SODIUM 40 MG DR TABLET PO SCH (08:32)
[2018-06-16] MEDS: FERROUS SULFATE 325 MG EC TABLET PO SCH ×3 (08:32→16:48)
[2018-06-16] MEDS: ACETAMINOPHEN 325 MG TABLET PO PRN (08:32)
[2018-06-16] MEDS: SitaGLIPtin PHOSPHATE 25 MG TABLET PO SCH (08:32)
[2018-06-16] MEDS: INSULIN LISPRO 100 UNITS/ML SQ PRN ×2 (13:04→17:41)
[2018-06-16] MEDS: OxyCODONE HCL/ACETAMINOPHEN 5-325 MG TABLET PO PRN (13:19)
[2018-06-16 14:55] LABS: GLUCOMETER DEV NAME(LOC) 2WR 2E; GLUCOSE,POINT OF CARE 160 MG/DL (70-110)
[2018-06-16 14:55] LABS: GLUCOMETER DEV NAME(LOC) 2WR 1B; GLUCOSE,POINT OF CARE 119 MG/DL (70-110)
[2018-06-16 15:28] VITALS: BP 130/56
[2018-06-16] MEDS: DOCUSATE SODIUM 283 MG/5 ML MINI-ENEMA PR SCH (18:35)
[2018-06-16 19:09] LABS: GLUCOMETER DEV NAME(LOC) 2WR 1B; GLUCOSE,POINT OF CARE 145 MG/DL (70-110)
[2018-06-16 20:24] VITALS: BP 123/69
[2018-06-16] MEDS: QUEtiapine FUMARATE 25 MG TABLET PO SCH (20:27)
[2018-06-16] MEDS: MEMANTINE HCL 5 MG TABLET PO SCH (20:27)
[2018-06-16] MEDS: SENNA 187 MG TABLET PO SCH (20:28)
[2018-06-16 21:14] LABS: GLUCOMETER DEV NAME(LOC) 2WR 1B; GLUCOSE,POINT OF CARE 99 MG/DL (70-110)
[2018-06-17 02:38] VITALS: BP 145/71
[2018-06-17 06:24] LABS: GLUCOMETER DEV NAME(LOC) 2WR 1B; GLUCOSE,POINT OF CARE 111 MG/DL (70-110)
[2018-06-17 07:21] VITALS: BP 130/67
[2018-06-17] MEDS: MULTIVITAMINS WITH MINERALS, THERAPEUTIC TABLET PO SCH (07:59)
[2018-06-17] MEDS: PANTOPRAZOLE SODIUM 40 MG DR TABLET PO SCH (07:59)
[2018-06-17] MEDS: OxyCODONE HCL/ACETAMINOPHEN 5-325 MG TABLET PO PRN (07:59)
[2018-06-17] MEDS: CARVEDILOL 3.125 MG TABLET PO SCH ×2 (08:00→20:46)
[2018-06-17] MEDS: FERROUS SULFATE 325 MG EC TABLET PO SCH ×3 (08:00→17:05)
[2018-06-17] MEDS: DOCUSATE SODIUM 250 MG CAPSULE PO SCH ×2 (08:00→20:46)
[2018-06-17] MEDS: ASPIRIN 81 MG CHEWABLE TABLET PO SCH (08:00)
[2018-06-17] MEDS: ENOXAPARIN SODIUM 30 MG/0.3 ML PF SYRINGE SQ SCH ×2 (08:00→20:46)
[2018-06-17] MEDS: FUROSEMIDE 40 MG TABLET PO SCH ×2 (08:01→20:47)
[2018-06-17] MEDS: SitaGLIPtin PHOSPHATE 25 MG TABLET PO SCH (08:02)
[2018-06-17 12:29] LABS: GLUCOMETER DEV NAME(LOC) 2WR 2E; GLUCOSE,POINT OF CARE 188 MG/DL (70-110)
[2018-06-17] MEDS: INSULIN LISPRO 100 UNITS/ML SQ PRN ×2 (12:57→20:49)
[2018-06-17 15:15] VITALS: BP 159/60
[2018-06-17 17:14] LABS: GLUCOMETER DEV NAME(LOC) 2WR 1B; GLUCOSE,POINT OF CARE 109 MG/DL (70-110)
[2018-06-17] MEDS: DOCUSATE SODIUM 283 MG/5 ML MINI-ENEMA PR SCH (18:20)
[2018-06-17] MEDS: MEMANTINE HCL 5 MG TABLET PO SCH (20:46)
[2018-06-17] MEDS: QUEtiapine FUMARATE 25 MG TABLET PO SCH (20:46)
[2018-06-17] MEDS: SENNA 187 MG TABLET PO SCH (20:46)
[2018-06-17 20:57] VITALS: BP 145/59
[2018-06-17 21:49] LABS: GLUCOMETER DEV NAME(LOC) 2WR 2E; GLUCOSE,POINT OF CARE 189 MG/DL (70-110)
[2018-06-18] VITALS: BP 138/61
[2018-06-18 05:44] LABS: GLUCOMETER DEV NAME(LOC) 2WR 1B; GLUCOSE,POINT OF CARE 103 MG/DL (70-110)
[2018-06-18 07:00] VITALS: BP 107/56
[2018-06-18] MEDS: DOCUSATE SODIUM 250 MG CAPSULE PO SCH ×3 (09:00→21:19)
[2018-06-18] MEDS: ENOXAPARIN SODIUM 30 MG/0.3 ML PF SYRINGE SQ SCH ×2 (10:13→21:19)
[2018-06-18] MEDS: FERROUS SULFATE 325 MG EC TABLET PO SCH ×3 (10:14→16:22)
[2018-06-18] MEDS: ACETAMINOPHEN 325 MG TABLET PO PRN (10:14)
[2018-06-18] MEDS: PANTOPRAZOLE SODIUM 40 MG DR TABLET PO SCH (10:14)
[2018-06-18] MEDS: MULTIVITAMINS WITH MINERALS, THERAPEUTIC TABLET PO SCH (10:14)
[2018-06-18] MEDS: SitaGLIPtin PHOSPHATE 25 MG TABLET PO SCH (10:14)
[2018-06-18] MEDS: ASPIRIN 81 MG CHEWABLE TABLET PO SCH (10:15)
[2018-06-18] MEDS: FUROSEMIDE 40 MG TABLET PO SCH ×2 (10:15→21:19)
[2018-06-18] MEDS: CARVEDILOL 3.125 MG TABLET PO SCH ×2 (10:15→21:19)
[2018-06-18] MEDS: OxyCODONE HCL/ACETAMINOPHEN 5-325 MG TABLET PO PRN (10:18)
[2018-06-18] MEDS: INSULIN LISPRO 100 UNITS/ML SQ PRN ×2 (12:50→21:22)
[2018-06-18 13:33] LABS: GLUCOMETER DEV NAME(LOC) 2WR 2E; GLUCOSE,POINT OF CARE 214 MG/DL (70-110)
[2018-06-18 15:05] VITALS: BP 147/58
[2018-06-18 17:18] LABS: GLUCOMETER DEV NAME(LOC) 2WR 1B; GLUCOSE,POINT OF CARE 90 MG/DL (70-110)
[2018-06-18] MEDS: DOCUSATE SODIUM 283 MG/5 ML MINI-ENEMA PR SCH (19:00)
[2018-06-18] MEDS: MEMANTINE HCL 5 MG TABLET PO SCH (21:19)
[2018-06-18] MEDS: SENNA 187 MG TABLET PO SCH (21:19)
[2018-06-18] MEDS: QUEtiapine FUMARATE 25 MG TABLET PO SCH (21:19)
[2018-06-18 21:49] LABS: GLUCOMETER DEV NAME(LOC) 2WR 2E; GLUCOSE,POINT OF CARE 169 MG/DL (70-110)
[2018-06-19] VITALS: BP 136/66
[2018-06-19 06:29] LABS: GLUCOMETER DEV NAME(LOC) 2WR 2E; GLUCOSE,POINT OF CARE 103 MG/DL (70-110)
[2018-06-19 07:59] VITALS: BP 149/60
[2018-06-19] MEDS: MULTIVITAMINS WITH MINERALS, THERAPEUTIC TABLET PO SCH (08:38)
[2018-06-19] MEDS: DOCUSATE SODIUM 250 MG CAPSULE PO SCH ×2 (08:38→20:56)
[2018-06-19] MEDS: FERROUS SULFATE 325 MG EC TABLET PO SCH ×3 (08:38→17:07)
[2018-06-19] MEDS: SitaGLIPtin PHOSPHATE 25 MG TABLET PO SCH (08:38)
[2018-06-19] MEDS: CARVEDILOL 3.125 MG TABLET PO SCH ×2 (08:38→20:56)
[2018-06-19] MEDS: FUROSEMIDE 40 MG TABLET PO SCH ×2 (08:38→20:56)
[2018-06-19] MEDS: ASPIRIN 81 MG CHEWABLE TABLET PO SCH (08:38)
[2018-06-19] MEDS: PANTOPRAZOLE SODIUM 40 MG DR TABLET PO SCH (08:38)
[2018-06-19] MEDS: ENOXAPARIN SODIUM 30 MG/0.3 ML PF SYRINGE SQ SCH ×2 (08:39→21:01)
[2018-06-19] MEDS: OxyCODONE HCL/ACETAMINOPHEN 5-325 MG TABLET PO PRN ×2 (08:42→20:55)
[2018-06-19 12:04] LABS: GLUCOMETER DEV NAME(LOC) 2WR 1B; GLUCOSE,POINT OF CARE 174 MG/DL (70-110)
[2018-06-19] MEDS: INSULIN LISPRO 100 UNITS/ML SQ PRN ×2 (12:49→22:07)
[2018-06-19] MEDS: ACETAMINOPHEN 325 MG TABLET PO PRN (13:21)
[2018-06-19 16:09] VITALS: BP 125/51
[2018-06-19] MEDS: DOCUSATE SODIUM 283 MG/5 ML MINI-ENEMA PR SCH (18:54)
[2018-06-19] MEDS: MEMANTINE HCL 5 MG TABLET PO SCH (20:56)
[2018-06-19] MEDS: SENNA 187 MG TABLET PO SCH (20:56)
[2018-06-19] MEDS: QUEtiapine FUMARATE 25 MG TABLET PO SCH (20:56)
[2018-06-19 21:01] VITALS: BP 135/61
[2018-06-19 22:28] LABS: GLUCOMETER DEV NAME(LOC) 2WR 1B; GLUCOSE,POINT OF CARE 119 MG/DL (70-110)
[2018-06-19 22:29] LABS: GLUCOMETER DEV NAME(LOC) 2WR 1B; GLUCOSE,POINT OF CARE 208 MG/DL (70-110)
[2018-06-19 23:24] VITALS: BP 122/59
[2018-06-20 05:59] LABS: GLUCOMETER DEV NAME(LOC) 2WR 1B; GLUCOSE,POINT OF CARE 96 MG/DL (70-110)
[2018-06-20 07:33] VITALS: BP 146/70
[2018-06-20] MEDS: SitaGLIPtin PHOSPHATE 25 MG TABLET PO SCH (08:16)
[2018-06-20] MEDS: MULTIVITAMINS WITH MINERALS, THERAPEUTIC TABLET PO SCH (08:16)
[2018-06-20] MEDS: DOCUSATE SODIUM 250 MG CAPSULE PO SCH ×2 (08:16→20:15)
[2018-06-20] MEDS: CARVEDILOL 3.125 MG TABLET PO SCH ×2 (08:16→20:16)
[2018-06-20] MEDS: ASPIRIN 81 MG CHEWABLE TABLET PO SCH (08:16)
[2018-06-20] MEDS: FERROUS SULFATE 325 MG EC TABLET PO SCH ×3 (08:16→17:46)
[2018-06-20] MEDS: PANTOPRAZOLE SODIUM 40 MG DR TABLET PO SCH (08:16)
[2018-06-20] MEDS: FUROSEMIDE 40 MG TABLET PO SCH ×2 (08:16→20:15)
[2018-06-20] MEDS: ENOXAPARIN SODIUM 30 MG/0.3 ML PF SYRINGE SQ SCH ×2 (08:17→20:14)
[2018-06-20] MEDS: OxyCODONE HCL/ACETAMINOPHEN 5-325 MG TABLET PO PRN ×2 (09:10→21:27)
[2018-06-20 12:24] LABS: GLUCOMETER DEV NAME(LOC) 2WR 1B; GLUCOSE,POINT OF CARE 151 MG/DL (70-110)
[2018-06-20] MEDS: INSULIN LISPRO 100 UNITS/ML SQ PRN ×2 (12:50→21:45)
[2018-06-20 15:46] VITALS: BP 147/73
[2018-06-20] MEDS: DOCUSATE SODIUM 283 MG/5 ML MINI-ENEMA PR SCH (18:20)
[2018-06-20] MEDS: MEMANTINE HCL 5 MG TABLET PO SCH (20:15)
[2018-06-20] MEDS: SENNA 187 MG TABLET PO SCH (20:15)
[2018-06-20] MEDS: QUEtiapine FUMARATE 25 MG TABLET PO SCH (20:16)
[2018-06-20 21:43] LABS: GLUCOMETER DEV NAME(LOC) 2WR 2E; GLUCOSE,POINT OF CARE 155 MG/DL (70-110)
[2018-06-20 21:43] LABS: GLUCOMETER DEV NAME(LOC) 2WR 2E; GLUCOSE,POINT OF CARE 107 MG/DL (70-110)
[2018-06-20 23:30] VITALS: BP 135/55
[2018-06-21 06:34] LABS: GLUCOMETER DEV NAME(LOC) 2WR 1B; GLUCOSE,POINT OF CARE 94 MG/DL (70-110)
[2018-06-21 07:43] VITALS: BP 124/80
[2018-06-21] MEDS: SitaGLIPtin PHOSPHATE 25 MG TABLET PO SCH (08:57)
[2018-06-21] MEDS: ENOXAPARIN SODIUM 30 MG/0.3 ML PF SYRINGE SQ SCH ×2 (08:57→20:41)
[2018-06-21] MEDS: DOCUSATE SODIUM 250 MG CAPSULE PO SCH ×2 (08:57→09:12)
[2018-06-21] MEDS: FERROUS SULFATE 325 MG EC TABLET PO SCH ×3 (08:58→17:58)
[2018-06-21] MEDS: PANTOPRAZOLE SODIUM 40 MG DR TABLET PO SCH (08:58)
[2018-06-21] MEDS: FUROSEMIDE 40 MG TABLET PO SCH ×2 (08:58→20:41)
[2018-06-21] MEDS: CARVEDILOL 3.125 MG TABLET PO SCH ×2 (08:58→20:51)
[2018-06-21] MEDS: MULTIVITAMINS WITH MINERALS, THERAPEUTIC TABLET PO SCH (08:58)
[2018-06-21] MEDS: ASPIRIN 81 MG CHEWABLE TABLET PO SCH (08:59)
[2018-06-21] MEDS: INSULIN LISPRO 100 UNITS/ML SQ PRN ×2 (12:40→18:01)
[2018-06-21 13:13] LABS: GLUCOMETER DEV NAME(LOC) 2WR 2E; GLUCOSE,POINT OF CARE 144 MG/DL (70-110)
[2018-06-21 15:48] VITALS: BP 152/78
[2018-06-21] MEDS: DOCUSATE SODIUM 283 MG/5 ML MINI-ENEMA PR SCH (16:47)
[2018-06-21 19:33] LABS: GLUCOMETER DEV NAME(LOC) 2WR 2E; GLUCOSE,POINT OF CARE 165 MG/DL (70-110)
[2018-06-21] MEDS: MEMANTINE HCL 5 MG TABLET PO SCH (20:40)
[2018-06-21] MEDS: QUEtiapine FUMARATE 25 MG TABLET PO SCH (20:41)
[2018-06-21] MEDS: SENNA 187 MG TABLET PO SCH (20:41)
[2018-06-21] MEDS ORDERED: DOCUSATE SODIUM 250 MG CAPSULE PO ONE (20:45)
[2018-06-21 20:50] VITALS: BP 118/57
[2018-06-21 21:03] LABS: GLUCOMETER DEV NAME(LOC) 2WR 2E; GLUCOSE,POINT OF CARE 114 MG/DL (70-110)
[2018-06-22 00:09] VITALS: BP 125/83
[2018-06-22 06:44] LABS: GLUCOMETER DEV NAME(LOC) 2WR 2E; GLUCOSE,POINT OF CARE 117 MG/DL (70-110)
[2018-06-22 07:39] VITALS: BP 133/61
[2018-06-22] MEDS: ENOXAPARIN SODIUM 30 MG/0.3 ML PF SYRINGE SQ SCH ×2 (08:28→20:07)
[2018-06-22] MEDS: DOCUSATE SODIUM 250 MG CAPSULE PO SCH ×3 (08:28→20:07)
[2018-06-22] MEDS: FERROUS SULFATE 325 MG EC TABLET PO SCH ×3 (08:28→17:02)
[2018-06-22] MEDS: SitaGLIPtin PHOSPHATE 25 MG TABLET PO SCH (08:28)
[2018-06-22] MEDS: AmLODIPine BESYLATE 2.5 MG TABLET PO SCH (08:29)
[2018-06-22] MEDS: ASPIRIN 81 MG CHEWABLE TABLET PO SCH (08:29)
[2018-06-22] MEDS: FUROSEMIDE 40 MG TABLET PO SCH ×2 (08:29→20:06)
[2018-06-22] MEDS: CARVEDILOL 3.125 MG TABLET PO SCH ×2 (08:29→20:06)
[2018-06-22] MEDS: PANTOPRAZOLE SODIUM 40 MG DR TABLET PO SCH (08:29)
[2018-06-22] MEDS: MULTIVITAMINS WITH MINERALS, THERAPEUTIC TABLET PO SCH (08:30)
[2018-06-22] MEDS: OxyCODONE HCL/ACETAMINOPHEN 5-325 MG TABLET PO PRN (09:25)
[2018-06-22] MEDS: INSULIN LISPRO 100 UNITS/ML SQ PRN ×2 (13:12→21:19)
[2018-06-22 14:13] LABS: GLUCOMETER DEV NAME(LOC) 2WR 2E; GLUCOSE,POINT OF CARE 192 MG/DL (70-110)
[2018-06-22 15:20] VITALS: BP 128/68
[2018-06-22 17:58] LABS: GLUCOMETER DEV NAME(LOC) 2WR 2E; GLUCOSE,POINT OF CARE 122 MG/DL (70-110)
[2018-06-22] MEDS: DOCUSATE SODIUM 283 MG/5 ML MINI-ENEMA PR SCH (18:24)
[2018-06-22] MEDS: QUEtiapine FUMARATE 25 MG TABLET PO SCH (20:06)
[2018-06-22] MEDS: MELATONIN 3 MG TABLET PO SCH (20:07)
[2018-06-22] MEDS: MEMANTINE HCL 5 MG TABLET PO SCH (20:07)
[2018-06-22] MEDS: SENNA 187 MG TABLET PO SCH (20:07)
[2018-06-22 23:08] LABS: GLUCOMETER DEV NAME(LOC) 2WR 2E; GLUCOSE,POINT OF CARE 185 MG/DL (70-110)
[2018-06-23 05:20] VITALS: BP 109/54
[2018-06-23 05:49] LABS: GLUCOMETER DEV NAME(LOC) 2WR 2E; GLUCOSE,POINT OF CARE 82 MG/DL (70-110)
[2018-06-23 07:57] VITALS: BP 130/76
[2018-06-23] MEDS: POLYETHYLENE GLYCOL 3350 17 GM PACKET PO SCH (07:59)
[2018-06-23] MEDS: ENOXAPARIN SODIUM 30 MG/0.3 ML PF SYRINGE SQ SCH ×2 (08:00→21:26)
[2018-06-23] MEDS: MULTIVITAMINS WITH MINERALS, THERAPEUTIC TABLET PO SCH (08:00)
[2018-06-23] MEDS: SitaGLIPtin PHOSPHATE 25 MG TABLET PO SCH (08:00)
[2018-06-23] MEDS: PANTOPRAZOLE SODIUM 40 MG DR TABLET PO SCH (08:01)
[2018-06-23] MEDS: FUROSEMIDE 40 MG TABLET PO SCH ×2 (08:01→21:25)
[2018-06-23] MEDS: ASPIRIN 81 MG CHEWABLE TABLET PO SCH (08:01)
[2018-06-23] MEDS: OxyCODONE HCL/ACETAMINOPHEN 5-325 MG TABLET PO PRN (08:01)
[2018-06-23] MEDS: FERROUS SULFATE 325 MG EC TABLET PO SCH ×3 (08:02→16:07)
[2018-06-23] MEDS: CARVEDILOL 3.125 MG TABLET PO SCH ×2 (08:02→21:26)
[2018-06-23] MEDS: AmLODIPine BESYLATE 2.5 MG TABLET PO SCH (08:02)
[2018-06-23] MEDS: DOCUSATE SODIUM 250 MG CAPSULE PO SCH ×2 (08:03→21:25)
[2018-06-23 12:59] LABS: GLUCOMETER DEV NAME(LOC) 2WR 2E; GLUCOSE,POINT OF CARE 158 MG/DL (70-110)
[2018-06-23] MEDS: INSULIN LISPRO 100 UNITS/ML SQ PRN (13:02)
[2018-06-23 15:20] VITALS: BP 153/71
[2018-06-23 18:19] LABS: GLUCOMETER DEV NAME(LOC) 2WR 2E; GLUCOSE,POINT OF CARE 131 MG/DL (70-110)
[2018-06-23] MEDS: DOCUSATE SODIUM 283 MG/5 ML MINI-ENEMA PR SCH (18:30)
[2018-06-23] MEDS ORDERED: MULT-1239 PO (18:40)
[2018-06-23] MEDS ORDERED: MIRALAX PO (18:40)
[2018-06-23] MEDS ORDERED: MELA3TAB66 PO (18:40)
[2018-06-23] MEDS ORDERED: MEMA5 PO (18:40)
[2018-06-23] MEDS ORDERED: FERR-89 PO (18:40)
[2018-06-23] MEDS ORDERED: AMLO2.5T PO (18:40)
[2018-06-23] MEDS ORDERED: DOCU250C91 PO (18:40)
[2018-06-23 21:23] VITALS: BP 151/67
[2018-06-23] MEDS: MELATONIN 3 MG TABLET PO SCH (21:25)
[2018-06-23] MEDS: SENNA 187 MG TABLET PO SCH (21:25)
[2018-06-23] MEDS: QUEtiapine FUMARATE 25 MG TABLET PO SCH (21:26)
[2018-06-23] MEDS: MEMANTINE HCL 5 MG TABLET PO SCH (21:26)
[2018-06-23 21:58] LABS: GLUCOMETER DEV NAME(LOC) 2WR 2E; GLUCOSE,POINT OF CARE 134 MG/DL (70-110)
[2018-06-24] MEDS ORDERED: INSU100V SQ (00:57)
[2018-06-24 04:30] VITALS: BP 146/64
[2018-06-24 05:48] LABS: GLUCOMETER DEV NAME(LOC) 2WR 2E; GLUCOSE,POINT OF CARE 85 MG/DL (70-110)
[2018-06-24 07:45] VITALS: BP 129/71
[2018-06-24] MEDS: DOCUSATE SODIUM 250 MG CAPSULE PO SCH (09:00)
[2018-06-24] MEDS: ENOXAPARIN SODIUM 30 MG/0.3 ML PF SYRINGE SQ SCH (09:01)
[2018-06-24] MEDS: POLYETHYLENE GLYCOL 3350 17 GM PACKET PO SCH (09:01)
[2018-06-24] MEDS: PANTOPRAZOLE SODIUM 40 MG DR TABLET PO SCH (09:02)
[2018-06-24] MEDS: FERROUS SULFATE 325 MG EC TABLET PO SCH (09:02)
[2018-06-24] MEDS: ASPIRIN 81 MG CHEWABLE TABLET PO SCH (09:02)
[2018-06-24] MEDS: CARVEDILOL 3.125 MG TABLET PO SCH (09:02)
[2018-06-24] MEDS: SitaGLIPtin PHOSPHATE 25 MG TABLET PO SCH (09:03)
[2018-06-24] MEDS: FUROSEMIDE 40 MG TABLET PO SCH (09:03)
[2018-06-24] MEDS: AmLODIPine BESYLATE 2.5 MG TABLET PO SCH (09:03)
[2018-06-24] MEDS: MULTIVITAMINS WITH MINERALS, THERAPEUTIC TABLET PO SCH (09:03)
[2018-06-24] MEDS: OxyCODONE HCL/ACETAMINOPHEN 5-325 MG TABLET PO PRN (09:03)
[2018-06-24] MEDS ORDERED: HYDR-309 PO (11:30)
[2018-06-24] MEDS ORDERED: HYDROCODONE/ACETAMINOPHEN 5-325 MG TABLET PO PRN (11:30)
[2018-06-24] MEDS ORDERED: FERROUS SULFATE 325 MG EC TABLET PO SCH (12:00)
[2018-06-24 15:08] LABS: GLUCOMETER DEV NAME(LOC) 2WR 1B; GLUCOSE,POINT OF CARE 182 MG/DL (70-110)
== END 2018-06-24 13:29 | disposition home health service (06) | DRG 536 ==
LOC: 2WR 15:20
PROVIDERS: ADMIT Physical Medicine & Rehabilitation; ATTEND Physical Medicine & Rehabilitation
DX: S72.141A Displaced intertrochanteric fracture of right femur, initial encounter for closed fracture (principal); I50.22 Chronic systolic (congestive) heart failure; E46 Unspecified protein-calorie malnutrition; I42.9 Cardiomyopathy, unspecified; T82.110A Breakdown (mechanical) of cardiac electrode, initial encounter; I11.0 Hypertensive heart disease with heart failure; F03.90 Unspecified dementia, unspecified severity, without behavioral disturbance, psychotic disturbance, mood disturbance, and anxiety; E78.5 Hyperlipidemia, unspecified; F25.9 Schizoaffective disorder, unspecified; D64.9 Anemia, unspecified; E11.9 Type 2 diabetes mellitus without complications; K59.00 Constipation, unspecified; Y83.8 Other surgical procedures as the cause of abnormal reaction of the patient, or of later complication, without mention of misadventure at the time of the procedure; Y92.89 Other specified places as the place of occurrence of the external cause; Z68.26 Body mass index [BMI] 26.0-26.9, adult
CPT/HCPCS: 73502; 82728; 83036; 83540; 83550; 87081; 97110; 97112; 97116; 97150; 97162; 97530; 97535; 99366; J1650

== ENCOUNTER → 2018-08-25 | Outpatient (CLI) | payer MEDICARE, OTHER ==
[~2018-08-25] VITALS: Ht 152.4 cm; Wt 57.5 kg
[~2018-08-25] MED LIST changes: +AMLO2.5T3 PO; -DOCU100C33 PO; +DOCU250C91 PO; +FERR-89 PO; +FURO20 PO; +HYDR-309 PO; +INSU100V SQ; +MELA3TAB66 PO; +MEMA5 PO; +MIRALAX PO; +MULT-1239 PO
[2018-08-25 13:59] VITALS: BP 112/43
== END | disposition home or self-care (01) ==
LOC: SRCNTR 13:53
PROVIDERS: ATTEND Internal Medicine Clinical Cardiac Electrophysiology
DX: Z45.02 Encounter for adjustment and management of automatic implantable cardiac defibrillator (principal); I11.0 Hypertensive heart disease with heart failure; I50.9 Heart failure, unspecified; I42.9 Cardiomyopathy, unspecified; F20.9 Schizophrenia, unspecified; E11.9 Type 2 diabetes mellitus without complications
CPT/HCPCS: G0463

== ENCOUNTER 2018-09-30 11:57 | Emergency (ER) | payer MEDICARE, OTHER ==
[~2018-09-30] VITALS: Ht 165.1 cm; Wt 77.3 kg
[~2018-09-30 11:57] MED LIST changes: -AMLO2.5T3 PO; -DOCU250C91 PO; -FURO40TA5 PO; -HYDR-309 PO; -INSU100V SQ; -MELA3TAB66 PO; -MIRALAX PO; -PANT40TA PO; -SITA25 PO
[2018-09-30 13:28] LABS: BASOPHILS % (AUTO) 1.4 % (0.0-2.0); EOSINOPHILS % (AUTO) 0.1 % (1.0-6.0); HEMATOCRIT 32.8 % (36-46); HEMOGLOBIN 11.1 g/dL (12.0-16.0); LYMPHOCYTES # (AUTO) 1.1 K/uL (1.0-4.8); LYMPHOCYTES % (AUTO) 8.4 % (22.0-44.0); MEAN CORPUSCULAR HEMOGLOBIN 32.8 pg (26.0-34.0); MEAN CORPUSCULAR HGB CONC 33.9 G/dL (31.0-37.0); MEAN CORPUSCULAR VOLUME 97 fL (80-100); MONOCYTES # (AUTO) 0.7 K/uL (0.1-1.0); NEUTROPHILS # (AUTO) 11.1 K/uL (1.8-7.7); NEUTROPHILS % (AUTO) 85.1 % (40.0-70.0); PLATELET COUNT (AUTO) 166 K/uL (150-450); RED BLOOD CELL COUNT(AUTO) 3.38 MIL/uL (4.00-5.20); RED CELL DISTRIBUTION WIDTH 13.6 % (11.5-14.5)
[2018-09-30 13:37] LABS: CALCIUM, TOTAL 9.4 mg/dL (8.8-10.5); CREATININE 1.61 mg/dL (0.60-1.30); POTASSIUM 3.5 mmol/L (3.5-5.1)
[2018-09-30 13:43] LABS: ALBUMIN 3.6 g/dL (3.4-5.0); TOTAL PROTEIN, SERUM 8.1 g/dL (6.4-8.2)
[2018-09-30 15:58] LABS: APPEARANCE,URINE CLOUDY (CLEAR); BILIRUBIN,URINE NEGATIVE (NEGATIVE); GLUCOSE, URINE (UA) NEGATIVE (NEGATIVE); KETONES,URINE TRACE mg/dL (NEGATIVE); LEUKOCYTE ESTERASE ,URINE MODERATE (NEGATIVE); NITRATE,URINE NEGATIVE (NEGATIVE); OCCULT BLOOD,URINE NEGATIVE (NEGATIVE); PROTEIN,URINE NEGATIVE (NEGATIVE)
[2018-09-30 16:15] LABS: RBC,URINE None Seen /HPF (0-2)
[2018-09-30 16:16] LABS: BACTERIA,URINE Few /HPF (None Seen); SQUAMOUS EPITHELIAL CELL,UR Moderate /LPF (None Seen)
[2018-09-30 16:21] VITALS: BP 140/62
== END 2018-09-30 17:24 | disposition home or self-care (01) ==
LOC: EMS 11:59
DX: S42.292A Other displaced fracture of upper end of left humerus, initial encounter for closed fracture (principal); S70.02XA Contusion of left hip, initial encounter; S40.022A Contusion of left upper arm, initial encounter; F03.90 Unspecified dementia, unspecified severity, without behavioral disturbance, psychotic disturbance, mood disturbance, and anxiety; I11.0 Hypertensive heart disease with heart failure; I50.9 Heart failure, unspecified; E11.9 Type 2 diabetes mellitus without complications; F20.9 Schizophrenia, unspecified; Z79.82 Long term (current) use of aspirin; Z79.899 Other long term (current) drug therapy; Z96.642 Presence of left artificial hip joint; W18.39XA Other fall on same level, initial encounter; Y93.89 Activity, other specified; Y92.89 Other specified places as the place of occurrence of the external cause; Y99.8 Other external cause status
CPT/HCPCS: 73503; 87086; 93005

== ENCOUNTER → 2018-10-20 | Outpatient (CLI) | payer MEDICARE, OTHER ==
[~2018-10-20] MED LIST changes: -ASPI-556 PO; -CARV3 PO; +CEFT1FRO3 IV; +DOCU250C91 PO; -FERR-89 PO; +FLUC100T PO; -FURO20 PO; +INSLAN SQ; +INSU100V SQ; -LISI2.5T2 PO; +MELA3TAB66 PO; +METO25XL PO; +PANT40TA25 PO; -QUET25TA PO
[2018-10-20 10:13] VITALS: BP 90/57
== END | disposition home or self-care (01) ==
LOC: SRCNTR 10:09
PROVIDERS: ATTEND Internal Medicine Clinical Cardiac Electrophysiology
DX: R55 Syncope and collapse (principal); I11.0 Hypertensive heart disease with heart failure; I50.9 Heart failure, unspecified; E11.9 Type 2 diabetes mellitus without complications
CPT/HCPCS: G0463